=== PATIENT | male | born 1985 | race Caucasian/White ===

== ENCOUNTER 2022-10-13 15:16 | Emergency (ER) | payer MEDICAID ==
[~2022-10-13] VITALS: Ht 177.8 cm; Wt 113.0 kg
[2022-10-13 16:18] VITALS: BP 150/113
== END 2022-10-13 17:33 | disposition left against medical advice (07) ==
LOC: ER 15:16
DX: Z53.21 Procedure and treatment not carried out due to patient leaving prior to being seen by health care provider (principal)
CPT/HCPCS: 99281